=== PATIENT | male | born 1970 | race Caucasian/White ===

== ENCOUNTER 2023-10-12 14:43 | Emergency (ER) | payer MEDICAID ==
[~2023-10-12] VITALS: Ht 185.4 cm; Wt 148.3 kg
[2023-10-12] MEDS: ALBUTEROL SULF 2.5 MG/0.5ML(0.5%) NEB SOLN NEB ONE (15:30)
[2023-10-12] MEDS: IPRATROPIUM BROM 0.5 MG/2.5ML INH SOL NEB ONE (15:30)
[2023-10-12] MEDS: DexAMETHasone SOD PHOS 10MG/1ML VIAL INJ IM ONE (15:50)
[2023-10-12 15:55] LABS: Basophils # (auto) 0 10 ^3/uL (0-0.2); Basophils % (auto) 0.7 % (0.0-2.0); Eosinophils # (auto) 0.2 10 ^3/uL (0-0.8); Eosinophils % (auto) 3.7 % (0.0-7.0); Hematocrit 42.8 % (41.0-53.0); Hemoglobin 14.2 g/dL (13.5-17.5); Mean Corpuscular Hemoglobin 27.7 pg (28.0-32.0); Mean Corpuscular Hgb Conc. 33.1 g/dL (32.0-36.0); Mean Corpuscular Volume 83.8 fL (80.0-100.0); Monocytes % (auto) 17.1 % (0.0-12.0); Neutrophils # (auto) 2.5 10 ^3/uL (1.6-8.6); Neutrophils % (auto) 43.5 % (37.0-80.0); Nucleated Red Blood Cells % 0.2 %; Red Blood Cells 5.11 10^6/uL (4.5-5.90); Red Cell Distribution Width 15.1 % (11.8-14.3); White Blood Cell 5.8 10^3/uL (4.4-10.8)
[2023-10-12 16:00] LABS: Potassium 3.7 mmol/L (3.5-5.1); Sodium 138 mmol/L (136-145)
[2023-10-12 16:01] LABS: Calcium 8.5 mg/dL (8.5-10.1); Carbon Dioxide 27 mmol/L (20-30)
[2023-10-12 16:06] LABS: BUN/Creatinine Ratio 6.6 (10.0-20.0); Blood Urea Nitrogen 6 mg/dL (9-23); Glucose 107 mg/dL (74-106)
[2023-10-12] MEDS: cloNIDine HCL 0.1 MG TAB PO ONE (16:06)
[2023-10-12 16:57] LABS: Anion Gap 5 (5-15); Chloride 106 mmol/L (98-107)
[2023-10-12 16:58] LABS: COVID19 ANTIGEN SOFIA FIA NEGATIVE (NEGATIVE); Rapid Influenza A Negative (Negative); Respiratory Syncytial Virus Ag Negative
[2023-10-12 17:01] VITALS: BP 138/87; PULSE 91; RESP 17; TEMP 98.2; O2SAT 96
[2023-10-12 17:04] LABS: Rapid Influenza B Positive (Negative)
[2023-10-12] MEDS ORDERED: TAMIFLU PO (17:25)
[2023-10-12] MEDS ORDERED: ALBU108A5 IN (17:25)
[2023-10-12] MEDS ORDERED: BENZ100C97 PO (17:25)
[2023-10-12] MEDS ORDERED: ACET500T58 PO (17:25)
== END 2023-10-12 17:44 | disposition home or self-care (01) ==
LOC: ER 14:43
DX: J10.1 Influenza due to other identified influenza virus with other respiratory manifestations (principal); Z20.822 Contact with and (suspected) exposure to COVID-19
CPT/HCPCS: 36415; 71046; 80048; 83880; 84484; 85025; 85379; 87426; 87804; 87807; 94640; 96372; 99284; J1100; J7644

== ENCOUNTER 2024-03-26 12:10 | Inpatient (IN) | payer MEDICAID ==
[~2024-03-26] VITALS: Ht 180.3 cm; Wt 145.5 kg
[~2024-03-26 12:10] MED LIST: ACET500T58 PO; ALBU108A5 IN; BENZ100C97 PO; TAMIFLU PO
[2024-03-26 12:36] LABS: Basophils # (auto) 0.1 10 ^3/uL (0-0.2); Basophils % (auto) 0.8 % (0.0-2.0); Eosinophils # (auto) 0.3 10 ^3/uL (0-0.8); Hematocrit 44.1 % (41.0-53.0); Hemoglobin 15.2 g/dL (13.5-17.5); Lymphocytes # (auto) 2.5 10 ^3/uL (0.4-5.4); Lymphocytes % (auto) 28.2 % (10.0-50.0); Mean Corpuscular Hemoglobin 28.3 pg (28.0-32.0); Mean Corpuscular Hgb Conc. 34.6 g/dL (32.0-36.0); Mean Corpuscular Volume 81.9 fL (80.0-100.0); Monocytes # (auto) 0.7 10 ^3/uL (0-1.3); Monocytes % (auto) 7.5 % (0.0-12.0); Neutrophils # (auto) 5.4 10 ^3/uL (1.6-8.6); Neutrophils % (auto) 60.5 % (37.0-80.0); Red Blood Cells 5.39 10^6/uL (4.5-5.90); Red Cell Distribution Width 14.5 % (11.8-14.3)
[2024-03-26 12:57] LABS: INR 0.96 (0.9-1.15); Partial Thromboplastin Time 26.8 SEC (24.5-34.5); Prothrombin Time 10.2 sec (9.3-11.8)
[2024-03-26 12:58] LABS: Alanine Aminotransferase 28 U/L (7-40); Albumin 3.8 g/dL (3.2-4.8); Alkaline Phosphatase 88 U/L (46-116); Anion Gap 6 (5-15); Aspartate Aminotransferase 16 U/L (13-40); BUN/Creatinine Ratio 9.9 (10.0-20.0); Bilirubin, Total 0.3 mg/dL (0.2-1.0); Blood Urea Nitrogen 10 mg/dL (9-23); Calcium 8.8 mg/dL (8.7-10.4); Carbon Dioxide 23 mmol/L (20-30); Chloride 103 mmol/L (98-107); Potassium 4.2 mmol/L (3.5-5.1); Sodium 132 mmol/L (136-145); Total Protein 6.7 g/dL (5.7-8.2)
[2024-03-26 13:22] LABS: Glucose 408 mg/dL (74-106)
[2024-03-26] MEDS ORDERED: NITROGLYCERIN 0.4 MG SL TAB SL PRN (14:00)
[2024-03-26] MEDS ORDERED: DOCUSATE SOD 100 MG CAP PO PRN (14:00)
[2024-03-26] MEDS ORDERED: MORPHINE SULFATE INJ 2 MG/ml SYRG IV PRN (14:00)
[2024-03-26] MEDS ORDERED: ONDANSETRON HCL 4 MG/2 ML VIAL IV PRN (14:00)
[2024-03-26 14:01] VITALS: PULSE 91; RESP 18; O2SAT 98
[2024-03-26] MEDS: InsuLIN REG 1unit/0.01ml Soln (100units/ml) IV ONE ×2 (14:15→19:06)
[2024-03-26] MEDS ORDERED: DEXTROSE (50%) 50ML SYRG IV PRN (14:15)
[2024-03-26] MEDS ORDERED: ALBUTEROL SULF 2.5 MG/0.5ML(0.5%) NEB SOLN NEB PRN (15:00)
[2024-03-26] MEDS: SODIUM CHLOR 0.9% PF (SALINE LOCK) 10ML VIAL/SYR IV SCH (15:09)
[2024-03-26 15:18] LABS: COVID19 ANTIGEN SOFIA FIA NEGATIVE (NEGATIVE)
[2024-03-26 15:36] VITALS: BP 144/95; PULSE 91; RESP 18; TEMP 97.9; O2SAT 91
[2024-03-26 15:47] VITALS: O2SAT 98
[2024-03-26] MEDS: ACCU-CHEK COMFORT CURVE STRIP VI SCH (17:00)
[2024-03-26 17:48] VITALS: O2SAT 96
[2024-03-26] MEDS: InsuLIN REG 1unit/0.01ml Soln (100units/ml) SC SCH ×2 (18:03→22:27)
[2024-03-26 22:00] VITALS: RESP 16
[2024-03-26] MEDS ORDERED: LISI40TA16 PO (23:58)
[2024-03-26] MEDS ORDERED: BUPR75TA98 PO (23:58)
[2024-03-27] VITALS (10 sets, daily range): BP systolic 121–164; BP diastolic 85–104; PULSE 70–96; RESP 16–20; TEMP 97.4–98.3; O2SAT 91–96
[2024-03-27] MEDS: HYDROcodone-ACET 5/325MG TAB PO PRN (00:50)
[2024-03-27] MEDS: ACETAMINOPHEN 325 MG TAB PO PRN (06:05)
[2024-03-27 06:38] LABS: Triglycerides 127 mg/dL (< 150)
[2024-03-27 06:39] LABS: Cholesterol 141 mg/dL (< 200); LDL Cholesterol 78 mg/dL (< 100)
[2024-03-27 06:40] LABS: HDL Cholesterol 43 mg/dL (40-59)
[2024-03-27 07:40] LABS: Basophils # (auto) 0.1 10 ^3/uL (0-0.2); Basophils % (auto) 0.7 % (0.0-2.0); Eosinophils # (auto) 0.3 10 ^3/uL (0-0.8); Eosinophils % (auto) 3.5 % (0.0-7.0); Hematocrit 44.9 % (41.0-53.0); Hemoglobin 15.5 g/dL (13.5-17.5); Lymphocytes # (auto) 3.3 10 ^3/uL (0.4-5.4); Lymphocytes % (auto) 36.8 % (10.0-50.0); Mean Corpuscular Hemoglobin 28.6 pg (28.0-32.0); Mean Corpuscular Hgb Conc. 34.5 g/dL (32.0-36.0); Mean Corpuscular Volume 82.9 fL (80.0-100.0); Monocytes # (auto) 0.9 10 ^3/uL (0-1.3); Monocytes % (auto) 9.4 % (0.0-12.0); Neutrophils # (auto) 4.5 10 ^3/uL (1.6-8.6); Neutrophils % (auto) 49.6 % (37.0-80.0); Nucleated Red Blood Cells % 0.1 %; Red Blood Cells 5.42 10^6/uL (4.5-5.90); Red Cell Distribution Width 14.5 % (11.8-14.3)
[2024-03-27 08:28] LABS: Alanine Aminotransferase 27 U/L (7-40); Albumin 3.8 g/dL (3.2-4.8); Alkaline Phosphatase 78 U/L (46-116); Anion Gap 8 (5-15); Aspartate Aminotransferase 14 U/L (13-40); BUN/Creatinine Ratio 14.9 (10.0-20.0); Bilirubin, Total 0.5 mg/dL (0.2-1.0); Blood Urea Nitrogen 15 mg/dL (9-23); Calcium 8.9 mg/dL (8.7-10.4); Carbon Dioxide 23 mmol/L (20-30); Chloride 106 mmol/L (98-107); Potassium 3.8 mmol/L (3.5-5.1); Sodium 137 mmol/L (136-145); Total Protein 6.3 g/dL (5.7-8.2)
[2024-03-27 08:35] LABS: Glucose 199 mg/dL (74-106)
[2024-03-27] MEDS: ENOXAPARIN SOD 40 MG/0.4 ML SYRINGE SC SCH (09:04)
[2024-03-27] MEDS: LISINOPRIL 20 MG TAB PO SCH (09:06)
[2024-03-27 09:09] LABS: Hepatitis B Surface Antigen Negative (Negative)
[2024-03-27 09:30] LABS: Hepatitis C Antibody Negative (Negative)
[2024-03-27] MEDS: buPROPion HCL 75 MG TAB PO ONE (12:13)
[2024-03-27 12:16] LABS: Urine Bacteria None Seen /hpf (None Seen)
[2024-03-27 12:36] LABS: Urine Blood Negative /uL (Negative); Urine Clarity Clear (Clear); Urine Color Yellow (Yellow); Urine Protein, UAD Negative (Negative); Urine Specific Gravity 1.025 (1.001-1.035); Urine Urobilinogen Normal (Negative); Urine WBC <1 /hpf (0 - 3); Urine pH 5.5 (5.0-9.0)
[2024-03-27] MEDS: NICOTINE 14 MG/24HR TOPICAL PATCH TD ONE (12:43)
[2024-03-27] MEDS: FUROSEMIDE 40 MG/4 ML VIAL IV ONE (12:44)
[2024-03-27 12:47] LABS: Amphetamine Screen, Urine Neg (NEGATIVE); Barbiturate Scree,Urine Neg (NEGATIVE); Benzodiazephine Screen, Urine Neg (NEGATIVE)
[2024-03-27 12:48] LABS: Cannabinoid Screen, Urine Neg (NEGATIVE); Cocaine Screen, Urine Neg (NEGATIVE); Opiate Scree,Urine Neg (NEGATIVE); Phencyclidine Screen, Urine Neg (NEGATIVE)
[2024-03-27] MEDS ORDERED: hydrALAZINE HCL 20 MG/ML VL IV PRN (18:00)
[2024-03-27] MEDS: INSULIN LANTUS (GLARGINE) 1 /0.01ml (100units/ml) SC SCH (21:41)
[2024-03-28] VITALS (9 sets, daily range): BP systolic 116–139; BP diastolic 73–95; PULSE 72–114; RESP 16–21; TEMP 97.5–98.2; O2SAT 93–98
[2024-03-28 06:15] LABS: Alanine Aminotransferase 29 U/L (7-40); Albumin 3.9 g/dL (3.2-4.8); Alkaline Phosphatase 79 U/L (46-116); Anion Gap 6 (5-15); Aspartate Aminotransferase 19 U/L (13-40); BUN/Creatinine Ratio 15.5 (10.0-20.0); Basophils # (auto) 0.1 10 ^3/uL (0-0.2); Basophils % (auto) 0.8 % (0.0-2.0); Bilirubin, Total 0.6 mg/dL (0.2-1.0); Blood Urea Nitrogen 16 mg/dL (9-23); Carbon Dioxide 27 mmol/L (20-30); Chloride 104 mmol/L (98-107); Eosinophils # (auto) 0.3 10 ^3/uL (0-0.8); Eosinophils % (auto) 3.3 % (0.0-7.0); Glucose 155 mg/dL (74-106); Hematocrit 46.5 % (41.0-53.0); Hemoglobin 16.3 g/dL (13.5-17.5); Lymphocytes # (auto) 2.5 10 ^3/uL (0.4-5.4); Lymphocytes % (auto) 26.7 % (10.0-50.0); Mean Corpuscular Volume 82.9 fL (80.0-100.0); Monocytes # (auto) 0.8 10 ^3/uL (0-1.3); Monocytes % (auto) 8.5 % (0.0-12.0); Neutrophils # (auto) 5.8 10 ^3/uL (1.6-8.6); Neutrophils % (auto) 60.7 % (37.0-80.0); Nucleated Red Blood Cells % 0.1 %; Potassium 3.4 mmol/L (3.5-5.1); Red Blood Cells 5.61 10^6/uL (4.5-5.90); Red Cell Distribution Width 14.8 % (11.8-14.3); Sodium 137 mmol/L (136-145); Total Protein 6.9 g/dL (5.7-8.2); White Blood Cell 9.5 10^3/uL (4.4-10.8)
[2024-03-28] MEDS: EMPAGLIFLOZIN 10 MG TAB PO SCH (09:53)
[2024-03-28] MEDS: FUROSEMIDE 40 MG/4 ML VIAL IV SCH ×2 (09:53→17:02)
[2024-03-28] MEDS: NICOTINE 14 MG/24HR TOPICAL PATCH TD SCH (09:53)
[2024-03-28] MEDS: METOPROLOL SUCCINATE XL 50 MG TAB PO SCH (09:54)
[2024-03-28] MEDS ORDERED: FUROSEMIDE 40 MG TAB PO SCH (10:00)
[2024-03-28] MEDS: POTASSIUM CHL 20 Meq TABLET PO ONE (11:33)
[2024-03-28] MEDS: buPROPion HCL 75 MG TAB PO ONE (12:16)
[2024-03-28] MEDS ORDERED: KETOCONAZOLE 2 % TOPICAL CREAM 15GM TOP ONE (15:00)
[2024-03-28] MEDS: CLOTRIMAZOLE 1 % CREAM 15GM TOP SCH (21:37)
[2024-03-29] VITALS (7 sets, daily range): BP systolic 105–149; BP diastolic 45–96; PULSE 63–87; RESP 18–20; TEMP 97.4–98.7; O2SAT 92–99
[2024-03-29 05:52] LABS: Basophils # (auto) 0.1 10 ^3/uL (0-0.2); Basophils % (auto) 0.6 % (0.0-2.0); Eosinophils # (auto) 0.2 10 ^3/uL (0-0.8); Eosinophils % (auto) 2.3 % (0.0-7.0); Hematocrit 47.7 % (41.0-53.0); Hemoglobin 16.5 g/dL (13.5-17.5); Lymphocytes # (auto) 3.4 10 ^3/uL (0.4-5.4); Lymphocytes % (auto) 34.7 % (10.0-50.0); Mean Corpuscular Hemoglobin 28.6 pg (28.0-32.0); Mean Corpuscular Hgb Conc. 34.5 g/dL (32.0-36.0); Monocytes # (auto) 0.9 10 ^3/uL (0-1.3); Monocytes % (auto) 9.4 % (0.0-12.0); Neutrophils # (auto) 5.1 10 ^3/uL (1.6-8.6); Nucleated Red Blood Cells % 0.1 %; Red Blood Cells 5.75 10^6/uL (4.5-5.90); Red Cell Distribution Width 14.4 % (11.8-14.3); White Blood Cell 9.7 10^3/uL (4.4-10.8)
[2024-03-29 06:09] LABS: Alanine Aminotransferase 28 U/L (7-40); Albumin 4.1 g/dL (3.2-4.8); Alkaline Phosphatase 79 U/L (46-116); Anion Gap 7 (5-15); Aspartate Aminotransferase 20 U/L (13-40); Blood Urea Nitrogen 16 mg/dL (9-23); Calcium 9.3 mg/dL (8.7-10.4); Carbon Dioxide 28 mmol/L (20-30); Chloride 103 mmol/L (98-107); Glucose 133 mg/dL (74-106); Potassium 3.5 mmol/L (3.5-5.1); Sodium 138 mmol/L (136-145)
[2024-03-29 06:10] LABS: Bilirubin, Total 0.4 mg/dL (0.2-1.0); Total Protein 6.7 g/dL (5.7-8.2)
[2024-03-29] MEDS: FLUCONAZOLE 100 MG TAB PO SCH (10:37)
[2024-03-29] MEDS: buPROPion HCL 75 MG TAB PO SCH (10:40)
[2024-03-29] MEDS ORDERED: FURO40TA4 PO (13:21)
[2024-03-29] MEDS ORDERED: EMPA1TAB PO (13:21)
[2024-03-29] MEDS ORDERED: METF-370 PO (13:21)
[2024-03-29] MEDS ORDERED: FLUC100T34 PO (13:21)
[2024-03-29] MEDS ORDERED: METO-6 PO (13:21)
== END 2024-03-29 16:05 | disposition home or self-care (01) | DRG 194 ==
LOC: EDBD 12:10 → EDUNIT# 12:10 → ER 12:15 → TELE 14:02 → TELE-E-ADS 23:33
PROVIDERS: ADMIT Internal Medicine; ATTEND Internal Medicine
DX: I11.0 Hypertensive heart disease with heart failure (principal); E11.65 Type 2 diabetes mellitus with hyperglycemia; I50.33 Acute on chronic diastolic (congestive) heart failure; I16.0 Hypertensive urgency; E66.01 Morbid (severe) obesity due to excess calories; Z82.49 Family history of ischemic heart disease and other diseases of the circulatory system; Z86.011 Personal history of benign neoplasm of the brain; Z79.51 Long term (current) use of inhaled steroids; Z79.899 Other long term (current) drug therapy; Z68.41 Body mass index [BMI] 40.0-44.9, adult
CPT/HCPCS: 36415; 71045; 80053; 80061; 80307; 81001; 82962; 83036; 83735; 83880; 84443; 84484; 85025; 85610; 85730; 86803; 87340; 87426; 93005; 93306; 96374; 96375; 99291; G0378; J1815

== ENCOUNTER 2024-05-21 14:21 | Emergency (ER) | payer MEDICAID ==
[~2024-05-21] VITALS: Ht 185.4 cm; Wt 135.0 kg
[~2024-05-21 14:21] MED LIST changes: +BUPR75TA98 PO; +EMPA1TAB PO; +FLUC100T34 PO; +FURO40TA4 PO; +LISI40TA16 PO; +METF-370 PO; +METO-6 PO
[2024-05-21 17:05] LABS: Basophils # (auto) 0.1 10 ^3/uL (0-0.2); Eosinophils # (auto) 0.4 10 ^3/uL (0-0.8); Hematocrit 45.7 % (41.0-53.0); Hemoglobin 15.6 g/dL (13.5-17.5); Lymphocytes # (auto) 2.7 10 ^3/uL (0.4-5.4); Lymphocytes % (auto) 27.6 % (10.0-50.0); Mean Corpuscular Hemoglobin 28.8 pg (28.0-32.0); Mean Corpuscular Hgb Conc. 34.1 g/dL (32.0-36.0); Mean Corpuscular Volume 84.5 fL (80.0-100.0); Monocytes # (auto) 0.8 10 ^3/uL (0-1.3); Monocytes % (auto) 8.5 % (0.0-12.0); Neutrophils # (auto) 5.8 10 ^3/uL (1.6-8.6); Neutrophils % (auto) 58.9 % (37.0-80.0); Platelet Count (auto) 427 10^3/uL (140-450); Red Cell Distribution Width 15.4 % (11.8-14.3); White Blood Cell 9.8 10^3/uL (4.4-10.8)
[2024-05-21 17:22] LABS: Alanine Aminotransferase 32 U/L (7-40); Albumin 4.1 g/dL (3.2-4.8); Alkaline Phosphatase 81 U/L (46-116); Anion Gap 6 (5-15); Aspartate Aminotransferase 20 U/L (13-40); BUN/Creatinine Ratio 10.5 (10.0-20.0); Blood Urea Nitrogen 10 mg/dL (9-23); Calcium 9.4 mg/dL (8.7-10.4); Carbon Dioxide 28 mmol/L (20-31); Chloride 105 mmol/L (98-107); Glucose 117 mg/dL (74-106); Potassium 4.3 mmol/L (3.5-5.1); Sodium 139 mmol/L (136-145)
[2024-05-21 17:23] LABS: Bilirubin, Total 0.2 mg/dL (0.2-1.0); Total Protein 6.4 g/dL (5.7-8.2)
[2024-05-21] MEDS: ALBUTEROL SULF 2.5 MG/0.5ML(0.5%) NEB SOLN NEB ONE (19:53)
[2024-05-21] MEDS: IPRATROPIUM BROM 0.5 MG/2.5ML INH SOL NEB ONE (19:54)
[2024-05-21 20:00] VITALS: BP 154/81; PULSE 85; RESP 18; TEMP 98; O2SAT 98
[2024-05-21] MEDS: buPROPion HCL 75 MG TAB PO ONE (20:00)
== END 2024-05-21 20:32 | disposition home or self-care (01) ==
LOC: EDBD 14:21 → ER 14:26
DX: I20.9 Angina pectoris, unspecified (principal); R07.89 Other chest pain; I11.0 Hypertensive heart disease with heart failure; I50.89 Other heart failure; F17.210 Nicotine dependence, cigarettes, uncomplicated; F15.90 Other stimulant use, unspecified, uncomplicated; Z98.890 Other specified postprocedural states
CPT/HCPCS: 36415; 71045; 80053; 83880; 84484; 85025; 93005; 94640

== ENCOUNTER 2024-06-26 14:32 | Emergency (ER) | payer MEDICAID ==
[~2024-06-26] VITALS: Ht 182.9 cm; Wt 135.0 kg
[2024-06-26 14:36] VITALS: BP 152/88; RESP 20; O2SAT 98
--- NOTE | 2024-06-26 14:39 | ECG ---
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
--- NOTE | 2024-06-26 14:50 | ED.PDOC ---
HPI Comments HPI: Poor Historian. 54 y.o male presents to the ED for a chief complaint of left sided chest pain associated with nausea and SOB that started 45 minutes ago. Patient describes pain as a squeezing/pressure sensation, is constant, and radiates to his back. Patient denies any vomiting, diarrhea, fever, chills, or leg swelling. Patient takes ASA and Lasix daily, took it this morning alongside his other medications. Patient is on home oxygen 2 liters via [place]. Vital signs: Vitals: BP: 152/88 HR: 93 Temp: 99.8 F SPO2: 98% RA RR: 20 Patient denies any allergies Past medical history: CHF, HTN, [place], on oxygen at home 2 liters via [place] Past surgical history: Hernia repair REVIEW OF SYSTEMS: CONSTITUTIONAL: Denies acute: fever, diaphoresis, chills, HEAD: Denies acute: headache, photophobia Eyes: Denies acute: Double vision, vision loss, eye pain, eye discharge. EARS: Denies acute: tinnitus, hearing loss, ear discharge, ear pain, THROAT: Denies acute: sore throat, swelling, difficulty swallowing , pain with swallowing, change in voice. NECK: Denies acute: neck pain, neck swelling, stiff neck. HEART: Denies acute : palpitations, LUNGS: Denies acute: wheezing, cough, hemoptysis ABDOMEN: Denies acute: abdominal pain, Vomiting, diarrhea, melena , hematemesis, hematochezia SKIN: Denies acute: rash, redness, lesions, itchiness. EXTREMITIES: Denies acute: calf pain, numbness, tingling, weakness, denies pain in extremity. Denies acute: Low back pain. Neuro: Denies acute: focal neurological deficit, motor or sensory focal neurological deficit, tremors, seizure like activity, confusion, dizziness, change in mental status, loss of bowel or bladder function, cauda equina like symptoms. : Denies acute: dysuria, hematuria, flank pain, increase in urinary frequency. PSYCH: Denies acute: hallucination, suicidal ideation, homicidal ideation. PHYSICAL EXAM: General: no acute distress, awake and alert. Head: normocephalic, atraumatic. Neck: supple, trachea is midline, no swelling. Throat: Normal phonation. Eyes:, no erythema, no purulent discharge, no proptosis, no icterus. Heart: regular rate, regular rhythm, no significant murmur appreciated. Lungs: no apparent respiratory distress, Able to speak in full sentences. No wheezing, no rhonchi, no crackles. No stridors Clear to auscultation bilaterally. Abdomen: non tender to palpation, non distended, soft, no guarding, no rebound, + bowel sounds. Obese. Neuro: Awake, Alert, oriented to name, self, situation, follows commands GCS=15. Speech is normal. Skin: no petechia, no purpura, no cyanosis, non-pale, not jaundice. Lower extremities: --2/4 - Pitting edema no deformity, no focal swelling, no calf TTP. Makes eye contact. moves all four extremities. Face: no apparent facial droop. Chief Complaint: Chest Pain Time Seen by MD: 14:40 Primary Care Provider: NIRMALA Reviewed Notes: Nurses Notes, Allergies Allergies: Coded Allergies: NO KNOWN ALLERGIES (Unverified , 10/12/23) Home Meds Active Scripts Metformin Hydrochloride (Metformin Hcl) 500 Mg Tab, 1 TAB PO BID for 30 Days, #60 TAB 3 Refills Prov:FREYA MCMAHON MD 03/29/24 Metoprolol Succinate (Toprol Xl) 50 Mg Tab, 25 MG PO DAILY for 30 Days, #15 TAB Prov:FREYA MCMAHON MD 03/29/24 Furosemide (Furosemide) 40 Mg Tab, 1 TAB PO DAILY, #30 TAB 5 Refills Prov:FREYA MCMAHON MD 03/29/24 Fluconazole (Fluconazole) 100 Mg Tab, 100 MG PO DAILY for 5 Days, #5 TAB Prov:FREYA MCMAHON MD 03/29/24 Empagliflozin (Jardiance) 10 Mg Tab, 10 MG PO DAILY for 30 Days, #30 TAB Prov:FREYA MCMAHON MD 03/29/24 Benzonatate (Benzonatate) 100 Mg Cap, 1 CAP PO TID, #30 CAP Prov:KULWINDER BRAGA PAC 10/12/23 Acetaminophen (Acetaminophen) 500 Mg Tab, 500 MG PO Q4HP PRN, #30 TAB Prov:KULWINDER BRAGA PAC 10/12/23 Albuterol Sulfate (Albuterol Sulfate Hfa) 108 Mcg/Act Aer, 108 MCG IN Q4HP PRN, #1 AER Prov:KULWINDER BRAGA PAC 10/12/23 Oseltamivir Phosphate (Tamiflu) 75 Mg Cap, 75 MG PO BID for 5 Days, #10 CAP Prov:KULWINDER BRAGA PAC 10/12/23 Reported Medications Lisinopril (Lisinopril) 40 Mg Tab, 40 MG PO, TAB 03/26/24 Bupropion HCl (Bupropion Hydrochloride) 75 Mg Tab, 1 TAB PO DAILY 03/26/24 Information Source: Patient Mode of Arrival: Wheelchair Past Medical History PAST MEDICAL HISTORY: CHF, HTN, [place] Surgical History: Hernia Repair Family History Family History: No family hx ofKidney jayla, No family hx of Liver jayla, Family hx of heart jayla Social History Smoker: Cigarettes Alcohol: Occasionally Drugs: Methamphetamine Lives In: Home Was a procedure done? Was a procedure done?: No CP Differential Dx Differential Diagnosis: N/A Differential Diagnosis: Angina, Chest Wall Pain, Costochondritis, Esophageal reflux/spasm, Gastritis, Myocardial Infarction, Pericarditis, Other (Ddx include but not limitied to gastritis, musculoskeletal pain, radiculopathy, atypical chest pain, dissection, aneurysm, ACS, unstable angina, hiatal hernia, GERD, anxiety, costochondritis, PE, pneumothroax, neoplasm, cardiac ischemia, drug abuse, anemia.) X-Ray, Labs, Meds, VS Vital Signs Date Time Temp Pulse Resp B/P (MAP) Pulse Ox O2 Delivery O2 Flow Rate FiO2 06/26/24 15:42 88 06/26/24 14:38 96 06/26/24 14:36 99.8 93 20 152/88 (109) 98 Lab Test 06/26/24 15:40 06/26/24 14:42 Range/Units Troponin I High Sensitivity 4 4 </=54 ng/L White Blood Count 9.2 4.4-10.8 10^3/uL Red Blood Count 5.03 4.5-5.90 10^6/uL Hemoglobin 14.8 13.5-17.5 g/dL Hematocrit 43.1 41.0-53.0 % Mean Corpuscular Volume 85.7 80.0-100.0 fL Mean Corpuscular Hemoglobin 29.5 28.0-32.0 pg Mean Corpuscular Hemoglobin Concent 34.4 32.0-36.0 g/dL Red Cell Distribution Width 15.5 H 11.8-14.3 % Platelet Count 362 140-450 10^3/uL Mean Platelet Volume 7.1 6.9-10.8 fL Neutrophils (%) (Auto) 56.4 37.0-80.0 % Lymphocytes (%) (Auto) 29.7 10.0-50.0 % Monocytes (%) (Auto) 8.5 0.0-12.0 % Eosinophils (%) (Auto) 4.3 0.0-7.0 % Basophils (%) (Auto) 1.1 0.0-2.0 % Neutrophils # (Auto) 5.2 1.6-8.6 10 ^3/uL Lymphocytes # (Auto) 2.7 0.4-5.4 10 ^3/uL Monocytes # (Auto) 0.8 0-1.3 10 ^3/uL Eosinophils # (Auto) 0.4 0-0.8 10 ^3/uL Basophils # (Auto) 0.1 0-0.2 10 ^3/uL Nucleated Red Blood Cells 0.1 % Sodium Level 137 136-145 mmol/L Potassium Level 4.0 3.5-5.1 mmol/L Chloride Level 107 98-107 mmol/L Carbon Dioxide Level 27 20-31 mmol/L Anion Gap 3 L 5-15 Blood Urea Nitrogen 15 9-23 mg/dL Creatinine 1.29 0.700-1.30 mg/dL Glomerular Filtration Rate Calc 67 >90 mL/min BUN/Creatinine Ratio 11.6 10.0-20.0 Serum Glucose 119 H 74-106 mg/dL Calcium Level 9.5 8.7-10.4 mg/dL Total Bilirubin 0.3 0.2-1.0 mg/dL Aspartate Amino Transferase (AST) 24 13-40 U/L Alanine Aminotransferase (ALT) 31 7-40 U/L Alkaline Phosphatase 72 46-116 U/L B-Type Natriuretic Peptide 2.26 0-100 pg/mL Total Protein 6.3 5.7-8.2 g/dL Albumin 4.1 3.2-4.8 g/dL [facility] [id number] [place] [id number] Ph: [phone] DIAGNOSTIC IMAGING Diagnostic Imaging Report : [id number] Signed PATIENT: POOJA NELSON ACCT: [id number] UNIT: [id number] : 1970 LOC: ER ROOM / BED: / AGE / SEX: 54 / M ADM STATUS: REG ER SERVICE [id number] ORDERING PHYSICIAN: RAMON JOEL MD PROCEDURE(s): CXRP - CHEST PORTABLE REASON: CP ORDER NUMBER(s): [id number], ACCESSION NUMBER(s): [id number] CHEST RADIOGRAPH Indication:CP Technique: Single frontal view of the chest was obtained Comparison: XY CHEST XRAY 1 VIEW on DOS: 05/21/24, XY CHEST PORTABLE on DOS: 03/29/24, XY CHEST PORTABLE on DOS: 03/26/24 FINDINGS: Lines and Tubes: None Lungs: No focal consolidation. Pleura: No effusion. No pneumothorax. Cardiomediastinal contours: Unremarkable Bones: No acute osseous abnormality. IMPRESSION: No acute cardiopulmonary disease. ATED BY: ALEXA DAILEY MD DICTATED DATE/TIME: 06/26/24 152 SIGNED BY: ALEXA DAILEY MD SIGNED DATE/TIME: 06/26/24 1525 CC: Time of 1ST Reevaluation: 14:46 Reevaluation 1ST: Unchanged Patient Education/Counseling: Diagnosis, Treatment Family Education/Counseling: No Family Present Comments Patient presented with the above HPI.---cardiac---workup was initiated. patient was found with the above mentioned diagnosis. Patient was given: Aspirin and nitroglycerin and Lasix Patient ED course and VS have been stabilized. Patient has been reassessed in the ED and remained in a stable condition. Pertinent incidental findings were discussed with the patient and/or family. Patient/family voices understanding and is agreeable with plan. Patient has been observed in the ED adequate length of time to insure improvement/stability. patient was admitted to the medicine team for further evaluation and treatment of their presentation. However later I was informed that the patient eloped from the lobby of the ER because he wanted to go home to get a jacket All the reports of any imaging studies that were ordered by myself were reviewed by myself. Departure 1 Departure Time of Disposition: 14:55 Impression: Primary Impression: Chest pain Additional Impression: Eloped from emergency department Disposition: LEFT AWOL/ELOPED Admit to: Tele Condition: Guarded Discharged With: Self Critical Care Note Critical Care Time?: No Heart Score Heart Score: Heart Score Response (Comments) Value History Moderate Suspicious 1 EKG Normal 0 Age 45-64 1 Risk Factors >3 or Hx ASHD 2 Troponin Normal limit 0 Total 4 I personally scribed for JUSTIN RAMIREZ DO ([email or web address]) on 06/26/24 at 14:50. Electronically submitted by Jessica Demarco ([employer]). I personally scribed for JUSTIN RAMIREZ DO ([email or web address]) on 06/26/24 at 15:57. Electronically submitted by Jessica Demarco ([employer]). JUSTIN RAMIREZ DO Jun 26, 2024 14:50
[2024-06-26 15:00] LABS: Basophils # (auto) 0.1 10 ^3/uL (0-0.2); Basophils % (auto) 1.1 % (0.0-2.0); Eosinophils # (auto) 0.4 10 ^3/uL (0-0.8); Eosinophils % (auto) 4.3 % (0.0-7.0); Hematocrit 43.1 % (41.0-53.0); Hemoglobin 14.8 g/dL (13.5-17.5); Lymphocytes # (auto) 2.7 10 ^3/uL (0.4-5.4); Lymphocytes % (auto) 29.7 % (10.0-50.0); Mean Corpuscular Hemoglobin 29.5 pg (28.0-32.0); Mean Corpuscular Hgb Conc. 34.4 g/dL (32.0-36.0); Mean Corpuscular Volume 85.7 fL (80.0-100.0); Monocytes # (auto) 0.8 10 ^3/uL (0-1.3); Monocytes % (auto) 8.5 % (0.0-12.0); Neutrophils # (auto) 5.2 10 ^3/uL (1.6-8.6); Neutrophils % (auto) 56.4 % (37.0-80.0); Nucleated Red Blood Cells % 0.1 %; Platelet Count (auto) 362 10^3/uL (140-450); Red Blood Cells 5.03 10^6/uL (4.5-5.90); Red Cell Distribution Width 15.5 % (11.8-14.3); White Blood Cell 9.2 10^3/uL (4.4-10.8)
[2024-06-26] MEDS ORDERED: ASPirin 325 MG TAB PO ONE (15:00)
[2024-06-26] MEDS ORDERED: NITROGLYCERIN 0.4 MG SL TAB SL ONE (15:00)
[2024-06-26 15:20] LABS: Alanine Aminotransferase 31 U/L (7-40); Albumin 4.1 g/dL (3.2-4.8); Alkaline Phosphatase 72 U/L (46-116); Anion Gap 3 (5-15); Aspartate Aminotransferase 24 U/L (13-40); BUN/Creatinine Ratio 11.6 (10.0-20.0); Blood Urea Nitrogen 15 mg/dL (9-23); Calcium 9.5 mg/dL (8.7-10.4); Carbon Dioxide 27 mmol/L (20-31); Chloride 107 mmol/L (98-107); Glucose 119 mg/dL (74-106); Sodium 137 mmol/L (136-145)
[2024-06-26 15:21] LABS: Bilirubin, Total 0.3 mg/dL (0.2-1.0); Total Protein 6.3 g/dL (5.7-8.2)
--- NOTE | 2024-06-26 15:27 | DVH ---
CHEST RADIOGRAPH Indication:CP Technique: Single frontal view of the chest was obtained Comparison: XY CHEST XRAY 1 VIEW on DOS: 05/21/24, XY CHEST PORTABLE on DOS: 03/29/24, XY CHEST PORTABL E on DOS: 03/26/24 FINDINGS: Lines and Tubes: None Lungs: No focal consolidation. Pleura: No effusion. No pneumothorax. Cardiomediastinal contours: Unremarkable Bones: No acute osseous abnormality. IMPRESSION: No acute cardiopulmonary disease.
[2024-06-26 15:42] VITALS: PULSE 88
--- NOTE | 2024-06-26 19:22 | ECG ---
[facility] Test Date: 2024-06-26 Test Time: 15:42:15 Pat Name: POOJA NELSON Department: ED Room: Gender: M Tab Builder: MAURICE : 1970 Requested By: RAMON JOEL Order Number: [id number] Reading MD: Measurements Intervals [place] Rate: 88 P: 0 RI: 0 QRS: 36 QRSD: 101 T: 10 QT: 351 QTc: 425 Interpretive Statements Atrial fibrillation Please click the below link to view image of tracing.
== END 2024-06-26 18:10 | disposition left against medical advice (07) ==
LOC: ER 14:34
DX: R07.89 Other chest pain (principal); I11.0 Hypertensive heart disease with heart failure; I50.9 Heart failure, unspecified; F17.210 Nicotine dependence, cigarettes, uncomplicated; F15.10 Other stimulant abuse, uncomplicated; Z79.82 Long term (current) use of aspirin; Z79.84 Long term (current) use of oral hypoglycemic drugs; Z79.899 Other long term (current) drug therapy; Z98.890 Other specified postprocedural states; Z99.81 Dependence on supplemental oxygen
CPT/HCPCS: 36415; 71045; 80053; 83880; 84484; 85025; 93005

== ENCOUNTER → 2024-12-19 | Outpatient (CLI) | payer MEDICAID ==
[~2024-12-19] MED LIST changes: +ALBUTEROL SULF 2.5 MG/0.5ML(0.5%) NEB SOLN ONE
--- NOTE | 2024-12-22 15:30 | DVHNC2 ---
Procedure - December 19, 2024 Pulmonary function test interpretation Severe obstructive ventilatory defect. No significant bronchodilator response. FVC improved by 30 mL. Total lung capacity is below normal limits, 72% of predicted (5.46 L). Diffusion capacity is within normal limits, 83% of predicted. CHRIS COOK RESIDENT December 22, 2024 15:30
--- NOTE | 2024-12-22 15:31 | DVHNC2 ---
Procedure - December 19, 2024 6 minute walk test interpretation Patient completed 6 minutes of ambulation. Patient ambulated a 1000 ft. Expected heart rate achieved. Significant exertional hypoxia. O2 saturation dropped from 95% to 90%. Patient recovered within 2 minutes CHRSI COOK RESIDENT December 22, 2024 15:31
== END | disposition home or self-care (01) ==
LOC: RT 14:41
PROVIDERS: ATTEND Internal Medicine
DX: R06.09 Other forms of dyspnea (principal); R05.9 Cough, unspecified; Z79.51 Long term (current) use of inhaled steroids; Z87.891 Personal history of nicotine dependence
CPT/HCPCS: 94060; 94618; 94727; 94729